=== PATIENT | female | born 1965 | race African-American/Black ===

== ENCOUNTER 2017-10-10 13:24 | Inpatient (IN) | payer OTHER, MEDICARE ==
[~2017-10-10] VITALS: Ht 167.6 cm; Wt 92.7 kg
[~2017-10-10 13:24] MED LIST: BENZ1TAB PO; DOXY100T PO; FLUO20SO3 PO; HALO0.5T PO; LORT5TAB PO; SULF-154 PO; SULF1TAB47 PO
[2017-10-10 13:55] VITALS: BP 147/84; PULSE 90; RESP 18; TEMP 98.7; O2SAT 99
[2017-10-10 14:56] LABS: AUTOMATED NEUTROPHIL # 4.9 TH/MM3 (1.8-7.7); BASOPHIL % 0.4 % (0.0-2.0); EOSINOPHIL % 0.4 % (0.0-4.0); HEMATOCRIT 28.9 % (35.0-46.0); HEMOGLOBIN 10.1 GM/DL (11.6-15.3); LYMPH % 22.2 % (9.0-44.0); LYMPHOCYTE # 1.6 TH/MM3 (1.0-4.8); MEAN CELL VOLUME 77.4 FL (80.0-100.0); MEAN CORPUSCULAR HGB CONC 34.9 % (32.0-36.0); MEAN PLATELET VOLUME 7.4 FL (7.0-11.0); MONO % 10.8 % (0.0-8.0); MONOCYTE # 0.8 TH/MM3 (0-0.9); NEUT % 66.2 % (16.0-70.0); PLATELET COUNT 260 TH/MM3 (150-450); RED BLOOD COUNT 3.73 MIL/MM3 (4.00-5.30); RED CELL DISTRIBUTION WIDTH 15.2 % (11.6-17.2); WHITE BLOOD COUNT 7.4 TH/MM3 (4.0-11.0)
[2017-10-10 15:17] LABS: ALBUMIN 3.7 GM/DL (3.4-5.0); ALT (GPT) 21 U/L (10-53); AST (GOT) 19 U/L (15-37); BICARBONATE 26.7 MEQ/L (21.0-32.0); BLOOD UREA NITROGEN 14 MG/DL (7-18); CHLORIDE 99 MEQ/L (98-107); CREATININE 1.12 MG/DL (0.50-1.00); GLOMERULAR FILTRATION RATE 61 ML/MIN (>89); GLUCOSE,RANDOM 119 MG/DL (74-106); SODIUM (NA) 134 MEQ/L (136-145)
[2017-10-10 15:19] LABS: ALKALINE PHOSPHATASE 78 U/L (45-117); TOTAL BILIRUBIN ADULT 0.8 MG/DL (0.2-1.0); TOTAL PROTEIN 8.6 GM/DL (6.4-8.2)
[2017-10-10 15:36] VITALS: BP 142/81; PULSE 70; O2SAT 100
--- NOTE | 2017-10-10 16:25 | PD ---
HPI . Nonviable Chief Complaint: Psychiatric Symptoms Time Seen by Provider: 15:54 Travel History International Travel<30 days: No Contact w/Intl Traveler<30days: No Traveled to known affect area: No History of Present Illness HPI This patient is nonverbal and unable to give any history. She was reportedly brought in via private vehicle because she has become nonverbal and is not doing anything at home to help herself. Her grandson yesterday. He was 8 months old. It was a nontraumatic which is being presumptively attributed to SIDS. There is a family member here with her who states that she talked to her on the phone last night and that the patient reported that she felt "stressed." She is brought into us this afternoon by her daughter because she has not been verbal today and has not done anything to tend to her duties of daily living. Family reports a history of schizophrenia. They do not know whether or not she has been compliant with her medications. You do not know whether or not she may have overdosed. PFSH Past Medical History Anemia: Yes Arthritis: No Asthma: No Autoimmune Disease: No Blood Disorders: Yes (ANEMIA) Anxiety: Yes Depression: Yes Heart Rhythm Problems: No Cancer: No Cardiovascular Problems: No High Cholesterol: Yes Chemotherapy: No Chest Pain: No Congestive Heart Failure: No COPD: No Cerebrovascular Accident: No Diabetes: No Diminished Hearing: No Endocrine: No Gastrointestinal Disorders: No GERD: No Glaucoma: No Genitourinary: No Headaches: No Hepatitis: No Hiatal Hernia: No Hypertension: Yes Immune Disorder: No Implanted Vascular Access Dvce: No Kidney Stones: No Musculoskeletal: No Neurologic: No Psychiatric: Yes Reproductive: No Respiratory: No Migraines: No Myocardial Infarction: No Radiation Therapy: No Renal Failure: No Schizophrenia: Yes Seizures: No Sickle Cell Disease: No Sleep Apnea: No Thyroid Disease: No Ulcer: No Para: 2 Past Surgical History Abdominal Surgery: No AICD: No Appendectomy: No Arteriovenous Shunt: No Cardiac Surgery: No Cholecystectomy: No Ear Surgery: No Endocrine Surgery: No Eye Surgery: No Genitourinary Surgery: No Gynecologic Surgery: No Insulin Pump: No Joint Replacement: No Neurologic Surgery: No Oral Surgery: No Pacemaker: No Thoracic Surgery: No Other Surgery: No Social History Alcohol Use: No Tobacco Use: No Substance Use: No Allergies-Medications (Allergen,Severity, Reaction): Coded Allergies: No Known Allergies (Verified , 8/5/12) Reported Meds & Prescriptions Reported Meds & Active Scripts Active Bactrim Ds (Trimethoprim/Sulfamethoxazole) Tab 1 Tab PO BID Doxycycline Hyclate 100 Mg Tab 100 Mg PO BID Lortab 5/500 (Acetaminophen/Hydrocodone Bitart) 5 Mg/500 Mg Tab 1 Tab PO QIDPRN FOR PAIN Doxycycline Hyclate 100 Mg Tab 100 Mg PO BID Septra Ds (Trimethoprim/Sulfamethoxazole) Tab 1 Tab PO BID Reported Haldol (Haloperidol) 0.5 Mg Tab 0 PO BID UNKNOWN DOSE Cogentin (Benztropine Mesylate) 1 Mg Tab 1 Mg PO Prozac (Fluoxetine HCl) 20 Mg/5 Ml Liqd 20 Mg PO DAILY Review of Systems ROS Limitations: Unresponsive Physical Exam Narrative GENERAL: Lying on the stretcher with her eyes closed. Her eyelids do flutter. SKIN: warm/dry. Color and turgor. HEAD: Normocephalic. Atraumatic. EYES: Pupils equal and round. No scleral icterus. No injection or drainage. ENT: No nasal bleeding or discharge. Mucous membranes pink and moist. NECK: Trachea midline. Supple. CARDIOVASCULAR: Regular rate and rhythm. Heart sounds normal. RESPIRATORY: No accessory muscle use. Clear to auscultation. Breath sounds equal bilaterally. GASTROINTESTINAL: Abdomen soft. Nondistended. MUSCULOSKELETAL: No obvious deformities. NEUROLOGICAL: No obvious focal deficits noted. Good muscle tone. PSYCHIATRIC: Unable to assess. Data Data Last Documented VS Vital Signs Date Time Temp Pulse Resp B/P (MAP) Pulse Ox O2 Delivery O2 Flow Rate FiO2 10/10/17 15:36 70 142/81 (101) 100 Room Air 10/10/17 13:55 98.7 18 Orders Orders Complete Blood Count With Diff (10/10/17 14:14) Comprehensive Metabolic Panel (10/10/17 14:14) Psych Screen (10/10/17 14:14) Alcohol (Ethanol) (10/10/17 14:14) Cath For Specimen (10/10/17 15:54) Restraints Non-Violent HIALEY.Q3H (10/10/17 15:54) Drug Screen, Random Urine (10/10/17 15:54) Alcohol (Ethanol) (10/10/17 15:54) Salicylates (Aspirin) (10/10/17 15:54) Tylenol (Acetaminophen) (10/10/17 15:54) Potassium Chloride (Kcl) (10/11/17 09:00) Labs Laboratory Tests Test 10/10/17 14:25 10/10/17 15:50 White Blood Count 7.4 TH/MM3 Red Blood Count 3.73 MIL/MM3 Hemoglobin 10.1 GM/DL Hematocrit 28.9 % Mean Corpuscular Volume 77.4 FL Mean Corpuscular Hemoglobin 27.0 PG Mean Corpuscular Hemoglobin Concent 34.9 % Red Cell Distribution Width 15.2 % Platelet Count 260 TH/MM3 Mean Platelet Volume 7.4 FL Neutrophils (%) (Auto) 66.2 % Lymphocytes (%) (Auto) 22.2 % Monocytes (%) (Auto) 10.8 % Eosinophils (%) (Auto) 0.4 % Basophils (%) (Auto) 0.4 % Neutrophils # (Auto) 4.9 TH/MM3 Lymphocytes # (Auto) 1.6 TH/MM3 Monocytes # (Auto) 0.8 TH/MM3 Eosinophils # (Auto) 0.0 TH/MM3 Basophils # (Auto) 0.0 TH/MM3 CBC Comment DIFF FINAL Differential Comment Blood Urea Nitrogen 14 MG/DL Creatinine 1.12 MG/DL Random Glucose 119 MG/DL Total Protein 8.6 GM/DL Albumin 3.7 GM/DL Calcium Level 9.0 MG/DL Alkaline Phosphatase 78 U/L Aspartate Amino Transf (AST/SGOT) 19 U/L Alanine Aminotransferase (ALT/SGPT) 21 U/L Total Bilirubin 0.8 MG/DL Sodium Level 134 MEQ/L Potassium Level 3.1 MEQ/L Chloride Level 99 MEQ/L Carbon Dioxide Level 26.7 MEQ/L Anion Gap 8 MEQ/L Estimat Glomerular Filtration Rate 61 ML/MIN Ethyl Alcohol Level LESS THAN 3 MG/DL Urine Opiates Screen NEG Urine Barbiturates Screen NEG Urine Amphetamines Screen NEG Urine Benzodiazepines Screen NEG Urine Cocaine Screen NEG Urine Cannabinoids Screen NEG MDM Medical Decision Making Medical Screen Exam Complete: Yes Emergency Medical Condition: Yes Differential Diagnosis Differential diagnosis includes but is not limited to conversion reaction, grief reaction, overdose Narrative Course This patient presents to us nonverbal. The nursing staff reports that she did nothing to assist them in getting her out of the car. I have taken out a [place] Act. She will be medically cleared. Once she is medically cleared, she will likely be admitted to psychiatry.CBC & BMP Diagram 10/10/17 14:25 Total Protein 8.6 H, Albumin 3.7, Calcium Level 9.0, Alkaline Phosphatase 78, Aspartate Amino Transf (AST/SGOT) 19, Alanine Aminotransferase (ALT/SGPT) 21, Total Bilirubin 0.8 Supplemental potassium has been ordered. Tox screen is negative. This patient is medically clear for psychiatric evaluation. Diagnosis Primary Impression: Nonverbal Condition: Stable Khushi Torres MD Oct 10, 2017 16:25
[2017-10-10 17:58] VITALS: BP 125/74; PULSE 73; RESP 17; TEMP 99; O2SAT 100
[2017-10-10] MEDS ORDERED: WELLTAB39 PO (18:47)
[2017-10-10] MEDS ORDERED: BENZ0.5T PO (18:48)
[2017-10-10] MEDS ORDERED: GABA300C5 PO (18:48)
[2017-10-10] MEDS ORDERED: HALO10TA PO (18:50)
[2017-10-10] MEDS ORDERED: HALO5TAB PO (18:50)
[2017-10-10 19:58] VITALS: BP 195/93; PULSE 79; RESP 17; TEMP 96.7; O2SAT 99
[2017-10-10 20:43] VITALS: BP 175/80
[2017-10-11 00:32] VITALS: BP 185/89; PULSE 103; RESP 18; TEMP 96.8; O2SAT 100
[2017-10-11] MEDS ORDERED: cloNIDine HCL 0.1 MG TAB PO ONE (00:45)
[2017-10-11 06:00] VITALS: BP 157/81; PULSE 81; RESP 18; TEMP 98.6; O2SAT 100
[2017-10-11] MEDS ORDERED: AMLO5TAB2 PO (06:31)
[2017-10-11 12:16] VITALS: BP 176/96; PULSE 81; RESP 18; O2SAT 100
[2017-10-11] MEDS ORDERED: LORazepam 1 MG TAB PO PRN (14:45)
[2017-10-11] MEDS ORDERED: LORazepam 2 MG/ML VIAL IM PRN (14:45)
[2017-10-11] MEDS ORDERED: ALUMINUM/MAGNESIUM/SIMETH 30 ML CUP PO PRN (14:45)
[2017-10-11] MEDS ORDERED: MAGNESIUM HYDROXIDE SUSP 30 ML CUP PO PRN (14:45)
[2017-10-11] MEDS ORDERED: diphenhydrAMINE HCL 50 MG/ML VIAL IM PRN (14:45)
--- NOTE | 2017-10-11 14:49 | HHI.HP ---
Provisional Diagnosis Admission Date Warren I. Schizoaffective disorder, depressed type Certification of Person's Competence To Provide Express and Informed Consent I have personally examined Carina Dumont , a person being served at [facility] on, Oct 11, 2017 14:44. Express and informed consent means consent voluntarily given in writing, by a competent person, after sufficient explanation and disclosure of the subject matter involved to enable the person to make a knowing and willful decision without any element of force, fraud, deceit, duress, or other form of constraint or coercion. This person is 18 years of age or older, is not now known to be incompetent to consent to treatment with a guardian advocate, and does not have a health care surrogate or proxy currently making medical treatment decisions. I have found this person to be one of the following: [] Competent to provide express and informed consent, as defined above, for voluntary admission to this facility and is competent to provide express and informed consent for treatment. He/she has the consistent capacity to make well reasoned, willful, and knowing decisions concerning his or her medical or mental health treatment. The person fully and consistently understands the purpose of the admission for examination/placement and is fully capable of personally exercising all rights assured [place] [X] Incompetent to provide express and informed consent to voluntary admission, and this is incompetent to provide express and informed consent to treatment. The person must be transferred to involuntary status and a petition for a guardian advocate filed with the Circuit Court. [] Refusing to provide express and informed consent to voluntary admission but is competent to provide express and informed consent for treatment. The person must be discharged or transferred to involuntary status. Form shall be completed within 24 hours of a person's arrival at the receiving facility and filed in the clinical record of each person: 1. Admitted on a voluntary basis 2. Permitted to provide express and informed consent to his/her own treatment 3. Allowed to transfer from involuntary to voluntary status 4. Prior to permitting a person to consent to his or her own treatment after having been previously found incompetent to consent to treatment. History of Present Illness Capacity: Lacks Capacity HPI 52-year-old female brought in voluntarily, with history of either schizophrenia or schizoaffective disorder, mostly nonverbal and not caring for herself. Apparently the patient's 7-8 month old grandson the day prior to arrival. He was felt to have as a result of SIDS. The patient was living with her daughter and grandson. She called a family member and indicated she felt stressed. The morning of her admission to the emergency department, the patient became nonverbal. She would not get out of bed. When presenting to the emergency department physician, she was lying on a stretcher with her eyes closed. She would not respond to questions from staff or family members. Occasionally she would not her head or provide one word answers she has not eaten food or consumed liquids since her grandson . In the past the patient had lived alone but she is not recently living alone but instead lives with her daughter, Kristen a period Upon interview, the patient once again gives 1 word answers, no answers or very brief answers. She is aware that her grandson . She is aware that she is treated at [facility]. She is also aware that she lives with her daughter Kirsten. However, she is not moving or eating or drinking spontaneously. She is quite close to being catatonic. Review of Systems ROS Limitations: Clinical Condition Except as stated in HPI: all other systems reviewed are Neg Past Psych History Psychological trauma history Unknown psychological trauma. Patient has been treated at [facility] in the past. Violence risk - others (6 mos) Minimal Violence risk - self (6 mos) High Substance Abuse History Drugs/Alcohol past 12 months No known history of drug abuse. No known history of alcohol abuse. Past Family Social History Coded Allergies: No Known Allergies (Verified Allergy, Unknown, 10/10/17) Per DELMY Smith, [facility] [phone]. Reported Medications Amlodipine (Amlodipine) 5 Mg Tab, 5 MG PO DAILY for Blood Pressure Management, # 30 TAB 0 Refills 10/11/17 Haloperidol (Haloperidol) 10 Mg Tab, 10 MG PO HS, TAB 0 Refills 10/10/17 Haloperidol (Haloperidol) 5 Mg Tab, 5 MG PO DAILY, TAB 0 Refills 10/10/17 Gabapentin (Gabapentin) 300 Mg Cap, 300 MG PO TID, #90 CAP 0 Refills 10/10/17 Benztropine (Benztropine) 0.5 Mg Tab, 2 MG PO BID, #60 TAB 0 Refills 10/10/17 Bupropion HCl ER 24 HR (Wellbutrin Xl 24 HR) 300 Mg Tab, 300 MG PO HS for Control Depression, TAB 0 Refills 10/10/17 Discontinued Reported Medications Haloperidol (Haloperidol) 0.5 Mg Tab, 0 PO BID UNKNOWN DOSE 08/19/11 Benztropine Mesylate (Benztropine Mesylate) 1 Mg Tab, 1 MG PO 08/19/11 Fluoxetine Hcl (Prozac) 20 Mg/5 Ml Liqd, 20 MG PO DAILY 08/19/11 Discontinued Scripts Trimethoprim/Sulfamethoxazole (Bactrim Ds) Tab, 1 TAB PO BID, #20 Prov:Shawn Ochoa Jr, MD 05/10/12 Doxycycline Hyclate 100 mg (Doxycycline Hyclate 100 mg) 100 Mg Tab, 100 MG PO BID, #20 Prov:Shwan Ochoa Jr, MD 05/10/12 Hydrocodone-Acetaminophen (Lortab 5/500) 5 Mg/500 Mg Tab, 1 TAB PO QIDPRN, #15 FOR PAIN Prov:Ricky Aguero MD 08/19/11 Doxycycline Hyclate 100 mg (Doxycycline Hyclate 100 mg) 100 Mg Tab, 100 MG PO BID, #20 Prov:Ricky Aguero MD 08/19/11 Sulfamethoxazole-Trimethoprim (Septra Ds) Tab, 1 TAB PO BID, #20 Prov:Ricky Aguero MD 08/19/11 Current Medications Medications (Trade) Dose Ordered Sig/Praneeth Route Start Time Stop Time Status Last Admin (KCl) 40 meq DAILY PO 10/11/17 09:00 (Ativan) 1 mg Q6H PRN PO 10/11/17 14:45 UNV (Ativan Inj) 1 mg Q6H PRN IM 10/11/17 14:45 UNV (Benadryl) 50 mg Q6H PRN PO 10/11/17 14:45 UNV (Benadryl Inj) 50 mg Q6H PRN IM 10/11/17 14:45 UNV (Tylenol) 650 mg Q4H PRN PO 10/11/17 14:45 UNV (Milk Of Magnesia Liq) 30 ml DAILY PRN PO 10/11/17 14:45 UNV (Mag-Al Plus Susp Liq) 30 ml Q6H PRN PO 10/11/17 14:45 UNV Family Psych History Unknown. Patient poor historian. Social History Patient is unemployed and disabled from work. As stated above, she lives with her daughter, Shiela. She is aware her 7-month-old grandson . She was apparently "babysitting" at the time. There is no evidence of trauma to the baby. Patient's daughter is reportedly supportive. No history of alcohol or drug abuse. Physical Exam GENERAL: SKIN: Warm and dry. HEAD: Normocephalic. EYES: No scleral icterus. No injection or drainage. NECK: Supple, trachea midline. No JVD or lymphadenopathy. CARDIOVASCULAR: Regular rate and rhythm without murmurs, gallops, or rubs. RESPIRATORY: Breath sounds equal bilaterally. No accessory muscle use. GASTROINTESTINAL: Abdomen soft, non-tender, nondistended. MUSCULOSKELETAL: No cyanosis, or edema. BACK: Nontender without obvious deformity. No CVA tenderness. Vital Signs Vital Signs Date Time Temp Pulse Resp B/P (MAP) Pulse Ox O2 Delivery O2 Flow Rate FiO2 10/11/17 12:16 81 18 176/96 (122) 100 Room Air 10/11/17 06:00 98.6 I/O 10/11/17 10/11/17 10/12/17 08:00 16:00 00:00 Intake Total 100 ml Balance 100 ml Lab Results Test 10/10/17 15:50 Urine Opiates Screen NEG Urine Barbiturates Screen NEG Urine Amphetamines Screen NEG Urine Benzodiazepines Screen NEG Urine Cocaine Screen NEG Urine Cannabinoids Screen NEG Mental Status Examination Appearance: Disheveled Consciousness: Alert Orientation: Person Motor Activity: Abnormal gait Speech: Other Language: Adequate Fund of Knowledge: Adequate Attention and Concentration: Inadequate Memory: Impaired Mood: Sad Affect: Flat Thought Process & Associations: Other Thought Content: Thought blocking Hallucination Type: Auditory Delusion Type: None Suicidal Ideation: No Suicidal Plan: No Suicidal Intention: No Homicidal Ideation: No Homicidal Plan: No Homicidal Intention: No Insight: Poor Judgment: Poor Assessment & Plan Problem List: (1) Schizoaffective disorder, depressive type ICD Codes: F25.1 - Schizoaffective disorder, depressive type Assessment & Plan Estimated LOS: days. 52-year-old female Francisco acted as a result of inability to care for self. Patient has a history of schizophrenia or schizoaffective disorder and her grandson recently at the age of 7 months. Patient appears to be close to catatonic and this is likely the result of the of her grandson. According to reports, the patient normally functions better than this. For the most part, the patient is not speaking, eating, drinking fluids, or taking care of herself in any way. For this reason, the patient is felt to be in great danger of self-harm and is being admitted. This physician has ordered a CBC and comprehensive metabolic panel to determine if any infectious process or metabolic process is causing or contributing to her catatonia and psychosis. Furthermore, as a result of her mental illness, this physician is concerned about electrolyte imbalances, etc. as she is not eating or drinking adequately. This physician also ordered a hospitalist consult to follow the patient and determine any physical medicine abnormalities that might need to be treated emergently. This physician also ordered thyroid stimulating hormone, vitamin B-12 and vitamin D levels to determine if deficiencies in these areas are causing or contributing to her depression and catatonia. This physician also ordered an EKG to determine the patient's cardiac conduction status as her previous medications, including Haldol, can adversely affect the electrical system of her heart. This physician also started the patient on Abilify as it is less likely to cause cardiac conduction abnormalities, works well to augment antidepressant medicines such as the patient's current Wellbutrin and may help with increasing appetite. This physician spoke with the patient's nurse, Mariposa, regarding the patient's recent behavior. Case management will also be involved in information gathering and disposition planning. Kervin Celestin MD Oct 11, 2017 14:49
[2017-10-11 16:16] VITALS: BP 154/90; PULSE 89; RESP 16; TEMP 98.6; O2SAT 98
[2017-10-11] MEDS: amLODIPine BESYLATE 5 MG TAB PO SCH (16:20)
[2017-10-11] MEDS: POTASSIUM CHLORIDE 20 MEQ CONTROLLED RELEASE TAB PO SCH (16:21)
[2017-10-11] MEDS: ACETAMINOPHEN 325 MG TAB PO PRN (16:21)
[2017-10-11] MEDS: GABAPENTIN 300 MG CAP PO SCH (17:54)
[2017-10-11] MEDS ORDERED: ARIPiprazole 5 MG TAB PO SCH (21:00)
[2017-10-11] MEDS: buPROPion HCL 150 MG SUSTAINED RELEASE TAB PO SCH (22:18)
[2017-10-12] MEDS: buPROPion HCL 150 MG SUSTAINED RELEASE TAB PO SCH ×2 (08:44→21:33)
[2017-10-12] MEDS: POTASSIUM CHLORIDE 20 MEQ CONTROLLED RELEASE TAB PO SCH (08:45)
[2017-10-12] MEDS: GABAPENTIN 300 MG CAP PO SCH ×3 (08:45→17:52)
[2017-10-12] MEDS: amLODIPine BESYLATE 5 MG TAB PO SCH (08:45)
[2017-10-12 10:11] LABS: AUTOMATED NEUTROPHIL # 4.8 TH/MM3 (1.8-7.7); BASOPHIL # 0.1 TH/MM3 (0-0.2); BASOPHIL % 0.9 % (0.0-2.0); EOSINOPHIL # 0.1 TH/MM3 (0-0.4); EOSINOPHIL % 1.5 % (0.0-4.0); HEMATOCRIT 29.1 % (35.0-46.0); HEMOGLOBIN 10.1 GM/DL (11.6-15.3); LYMPH % 24.6 % (9.0-44.0); LYMPHOCYTE # 1.8 TH/MM3 (1.0-4.8); MEAN CORPUSCULAR HEMOGLOBIN 27.2 PG (27.0-34.0); MEAN CORPUSCULAR HGB CONC 34.8 % (32.0-36.0); MEAN PLATELET VOLUME 7.6 FL (7.0-11.0); MONOCYTE # 0.7 TH/MM3 (0-0.9); PLATELET COUNT 288 TH/MM3 (150-450); RED BLOOD COUNT 3.73 MIL/MM3 (4.00-5.30); RED CELL DISTRIBUTION WIDTH 15.8 % (11.6-17.2); WHITE BLOOD COUNT 7.5 TH/MM3 (4.0-11.0)
[2017-10-12 10:47] LABS: ALBUMIN 3.3 GM/DL (3.4-5.0); AST (GOT) 13 U/L (15-37); BICARBONATE 27.7 MEQ/L (21.0-32.0); BLOOD UREA NITROGEN 17 MG/DL (7-18); CALCIUM 9.1 MG/DL (8.5-10.1); CHLORIDE 102 MEQ/L (98-107); CREATININE 1.26 MG/DL (0.50-1.00); GLOMERULAR FILTRATION RATE 54 ML/MIN (>89); GLUCOSE,RANDOM 150 MG/DL (74-106); SODIUM (NA) 139 MEQ/L (136-145)
[2017-10-12 10:48] LABS: CHOLESTEROL 201 MG/DL (120-200)
[2017-10-12 11:14] LABS: ALKALINE PHOSPHATASE 73 U/L (45-117); ALT (GPT) 16 U/L (10-53); CHOLESTEROL/ HDL RATIO 3.11 RATIO; HDL CHOLESTEROL 64.5 MG/DL (40.0-60.0); LDL CHOLESTEROL 125 MG/DL (0-99); TOTAL BILIRUBIN ADULT 0.5 MG/DL (0.2-1.0); TOTAL PROTEIN 7.8 GM/DL (6.4-8.2); TRIGLYCERIDES 56 MG/DL (42-150)
--- NOTE | 2017-10-12 15:21 | HHI.PYPN ---
Subjective Remarks Patient initially admitted by Dr. Kervin Celestin who did initial psychiatric evaluation. He has done first opinion petition supporting [employer]. I have finished the initial psychiatric template orders. And also did a med reconciliation review. Patient seen by me in her room with nurse Caroline. Patient markedly psychomotor retarded her responses are markedly delayed. She acknowledges persistent somewhat of a command intimidating auditory hallucinations that of increased since the tragic of her grandson of SIDS. She states she is a client Mr. Dhara ledbetter and does see Chris Shelton there. She denies any alcohol or drug use with this. Patient has been in the day room briefly making a phone call. By she shows significant decrease in the range intense in her affect. She is able contracted to no harm while here. There is a catatonic flavor to this lady though her verbal output is minimal. Will increase patient's Abilify to 15 mg at at bedtime. I also agree with Dr. Celestin patient does meet criteria for involuntary psychiatric hospitalization thus will cosign second opinion petition supporting [employer] act Review of Systems Except as stated in HPI: all other systems reviewed are Neg Mental Status Examination Appearance: Disheveled Consciousness: Alert Orientation: Person Motor Activity: Abnormal gait Speech: Other Language: Adequate Fund of Knowledge: Adequate Attention and Concentration: Inadequate Memory: Impaired Mood: Sad Affect: Flat Thought Process & Associations: Other Thought Content: Thought blocking Hallucination Type: Auditory Delusion Type: None Suicidal Ideation: No Suicidal Plan: No Suicidal Intention: No Homicidal Ideation: No Homicidal Plan: No Homicidal Intention: No Insight: Poor Judgment: Poor Results Labs Test 10/12/17 09:09 White Blood Count 7.5 TH/MM3 Red Blood Count 3.73 MIL/MM3 Hemoglobin 10.1 GM/DL Hematocrit 29.1 % Mean Corpuscular Volume 78.0 FL Mean Corpuscular Hemoglobin 27.2 PG Mean Corpuscular Hemoglobin Concent 34.8 % Red Cell Distribution Width 15.8 % Platelet Count 288 TH/MM3 Mean Platelet Volume 7.6 FL Neutrophils (%) (Auto) 64.0 % Lymphocytes (%) (Auto) 24.6 % Monocytes (%) (Auto) 9.0 % Eosinophils (%) (Auto) 1.5 % Basophils (%) (Auto) 0.9 % Neutrophils # (Auto) 4.8 TH/MM3 Lymphocytes # (Auto) 1.8 TH/MM3 Monocytes # (Auto) 0.7 TH/MM3 Eosinophils # (Auto) 0.1 TH/MM3 Basophils # (Auto) 0.1 TH/MM3 CBC Comment DIFF FINAL Differential Comment Blood Urea Nitrogen 17 MG/DL Creatinine 1.26 MG/DL Random Glucose 150 MG/DL Total Protein 7.8 GM/DL Albumin 3.3 GM/DL Calcium Level 9.1 MG/DL Alkaline Phosphatase 73 U/L Aspartate Amino Transf (AST/SGOT) 13 U/L Alanine Aminotransferase (ALT/SGPT) 16 U/L Total Bilirubin 0.5 MG/DL Sodium Level 139 MEQ/L Potassium Level 3.6 MEQ/L Chloride Level 102 MEQ/L Carbon Dioxide Level 27.7 MEQ/L Anion Gap 9 MEQ/L Estimat Glomerular Filtration Rate 54 ML/MIN Triglycerides Level 56 MG/DL Cholesterol Level 201 MG/DL LDL Cholesterol 125 MG/DL HDL Cholesterol 64.5 MG/DL Cholesterol/HDL Ratio 3.11 RATIO Vitamin B12 Level 581 PG/ML 25-Hydroxy Vitamin D Total 23.4 ng/ML Thyroid Stimulating Hormone 3rd Gen 1.190 uIU/ML Vitals/IOs Vital Signs Date Time Temp Pulse Resp B/P (MAP) Pulse Ox O2 Delivery O2 Flow Rate FiO2 10/11/17 16:16 98.6 89 16 154/90 (111) 98 10/11/17 12:16 Room Air Intake and Output 10/12/17 10/12/17 10/13/17 08:00 16:00 00:00 Intake Total 240 ml Balance 240 ml Assessment & Plan Problem List: (1) Schizoaffective disorder, depressive type ICD Codes: F25.1 - Schizoaffective disorder, depressive type Assessment & Plan Estimated LOS: days patient severely depressed with marked psychomotor retardation. She medication adjustment above review Dr. Celestin and cosigned second opinion petition supporting [place] act Justification for Cont. Inpt. At this time patient decompensated placed a lower level of care Discharge Planning Need to contact patient's family consider various options including return home with her daughter Request HC Surrog/Guard Advoc?: No Shawn Taylor MD Oct 12, 2017 15:21
--- NOTE | 2017-10-12 16:45 | PD.CONS ---
HPI Service [facility] Hospitalists Consult Requested By Dr. Celestin Reason for Consult medical management Primary Care Physician Unknown Diagnoses: History of Present Illness Pt is a 52 yr old AA female w PMHx of either schizophrenia or schizoaffective disorder (per chart) HTN, chronic knee pain is admitted under the psych service. Hospitalist service consulted for medical management. Pt tells me that she found her grandson in his crib. She is having a hard time differentiating between reality and what is not. She has been having bad dreams. doesn't answer when I ask her if she hears voices or sees people. she has a very flat affect and speaks in a very low voice. she denies any CP/SOB/N/V /abd pain/burning w urination Review of Systems Except as stated in HPI: all other systems reviewed are Neg Past Family Social History Allergies: Coded Allergies: No Known Allergies (Verified Allergy, Unknown, 10/10/17) Per DELMY Smith, [facility] [phone]. Past Medical History either schizophrenia or schizoaffective disorder (per chart) HTN, chronic knee pain Past Surgical History ovarian cyst removed Reported Medications Reported Meds & Active Scripts Active Reported Amlodipine (Amlodipine Besylate) 5 Mg Tab 5 Mg PO DAILY Haloperidol 10 Mg Tab 10 Mg PO HS Haloperidol 5 Mg Tab 5 Mg PO DAILY Gabapentin 300 Mg Cap 300 Mg PO TID Benztropine (Benztropine Mesylate) 0.5 Mg Tab 2 Mg PO BID Wellbutrin Xl 24 HR (Bupropion HCl) 300 Mg Tab 300 Mg PO HS Family History mother healthy father was shot and killed Social History denies any smoking hx, alcohol use or illegal drug use Physical Exam Physical Exam GENERAL: This is an AA female, w very flat affect, mainly looks down SKIN: No rashes, ecchymoses or lesions. Cool and dry. HEAD: Atraumatic. Normocephalic. EYES: Pupils equal round and reactive. Extraocular motions intact. No scleral icterus. No injection or drainage. ENT: Nose without drainage . Throat without erythema, tonsillar hypertrophy or exudate. Airway patent. NECK: Trachea midline. CARDIOVASCULAR: Regular rate and rhythm without murmurs RESPIRATORY: Clear to auscultation. Breath sounds equal bilaterally. No wheezes GASTROINTESTINAL: Abdomen soft, non-tender, nondistended. MUSCULOSKELETAL: Extremities without edema. NEUROLOGICAL/PSYCH: Awake and alert. flat affect. is very brief w her answers. soft voice. Motor and sensory grossly within normal limits. slow speech. Laboratory Laboratory Tests Test 10/12/17 09:09 White Blood Count 7.5 Red Blood Count 3.73 Hemoglobin 10.1 Hematocrit 29.1 Mean Corpuscular Volume 78.0 Mean Corpuscular Hemoglobin 27.2 Mean Corpuscular Hemoglobin Concent 34.8 Red Cell Distribution Width 15.8 Platelet Count 288 Mean Platelet Volume 7.6 Neutrophils (%) (Auto) 64.0 Lymphocytes (%) (Auto) 24.6 Monocytes (%) (Auto) 9.0 Eosinophils (%) (Auto) 1.5 Basophils (%) (Auto) 0.9 Neutrophils # (Auto) 4.8 Lymphocytes # (Auto) 1.8 Monocytes # (Auto) 0.7 Eosinophils # (Auto) 0.1 Basophils # (Auto) 0.1 CBC Comment DIFF FINAL Differential Comment Blood Urea Nitrogen 17 Creatinine 1.26 Random Glucose 150 Total Protein 7.8 Albumin 3.3 Calcium Level 9.1 Alkaline Phosphatase 73 Aspartate Amino Transf (AST/SGOT) 13 Alanine Aminotransferase (ALT/SGPT) 16 Total Bilirubin 0.5 Sodium Level 139 Potassium Level 3.6 Chloride Level 102 Carbon Dioxide Level 27.7 Anion Gap 9 Estimat Glomerular Filtration Rate 54 Triglycerides Level 56 Cholesterol Level 201 LDL Cholesterol 125 HDL Cholesterol 64.5 Cholesterol/HDL Ratio 3.11 Vitamin B12 Level 581 25-Hydroxy Vitamin D Total 23.4 Thyroid Stimulating Hormone 3rd Gen 1.190 Result Diagram: 10/12/17 0909 10/12/17 0909 Assessment and Plan Assessment and Plan Schizoaffective disorder, depressive type: management per psych HTN: on amlodipine 5mg po daily. I will increase dose to 10mg po daily. added clonidine prn. heart healthy diet. chronic knee pain: apparently takes gabapentin for it.? neuropathy. Pt poor historian Mild SIRENA: Cr 1.26. Encourage po hydration. Repeat BMP in AM DVT proph: ambulation. Thank you for allowing us to take part of Mrs Dumont's care. I have adjusted pt' s BP meds and diet. Discussed Condition With patient and RN Martita Randall MD Oct 12, 2017 16:45
[2017-10-12] MEDS ORDERED: amLODIPine BESYLATE 5 MG TAB PO ONE (17:00)
[2017-10-12 17:19] LABS: HEMOGLOBIN A1C 5.5 % (4.3-6.0)
[2017-10-12 18:42] VITALS: BP 165/84; PULSE 94; RESP 16; TEMP 98.9; O2SAT 99
[2017-10-12] MEDS ORDERED: ARIPiprazole 15 MG TAB PO SCH (21:00)
--- NOTE | 2017-10-12 21:27 | EKG ---
Date Performed: 10/12/2017 Time Performed: 08:39:17 PTAGE: 52 years EKG: Sinus rhythm MARKED LEFT AXIS DEVIATION ABNORMAL ECG NO PREVIOUS TRACING DOCTOR: Mitch George Interpretating Date/Time 10/12/2017 21:25:53
[2017-10-13 05:51] VITALS: BP 143/81; PULSE 85; RESP 17; TEMP 98; O2SAT 100
[2017-10-13] MEDS: buPROPion HCL 150 MG SUSTAINED RELEASE TAB PO SCH ×2 (09:38→21:42)
[2017-10-13] MEDS: POTASSIUM CHLORIDE 20 MEQ CONTROLLED RELEASE TAB PO SCH (09:38)
[2017-10-13] MEDS: GABAPENTIN 300 MG CAP PO SCH ×3 (09:38→18:06)
[2017-10-13] MEDS: amLODIPine BESYLATE 5 MG TAB PO SCH (09:38)
[2017-10-13 13:18] LABS: BICARBONATE 28.5 MEQ/L (21.0-32.0); CALCIUM 9.1 MG/DL (8.5-10.1); CREATININE 1.13 MG/DL (0.50-1.00)
--- NOTE | 2017-10-13 13:21 | HHI.PYPN ---
Subjective Remarks Patient was seen and case discussed with nursing. Patient remains markedly psychotic. She is having auditory hallucinations of a demonic nature. They're not command in nature. Patient has a bizarre delusion that she is responsible for the deaths of her family. Psychomotor retardation, flat affect. She has fleeting suicidal ideation with no intent or plan Mental Status Examination Appearance: Disheveled Consciousness: Alert Orientation: Person Motor Activity: Abnormal gait Speech: Other Language: Adequate Fund of Knowledge: Adequate Attention and Concentration: Inadequate Memory: Impaired Mood: Sad Affect: Flat Thought Process & Associations: Other Thought Content: Thought blocking, Delusional Hallucination Type: Auditory (demonic) Delusion Type: Bizarre Suicidal Ideation: Yes Suicidal Plan: No Suicidal Intention: No Homicidal Ideation: No Homicidal Plan: No Homicidal Intention: No Insight: Poor Judgment: Poor Results Labs Test 10/13/17 12:11 Blood Urea Nitrogen 19 MG/DL Creatinine 1.13 MG/DL Random Glucose 147 MG/DL Calcium Level 9.1 MG/DL Sodium Level 136 MEQ/L Potassium Level 4.1 MEQ/L Chloride Level 102 MEQ/L Carbon Dioxide Level 28.5 MEQ/L Anion Gap 6 MEQ/L Estimat Glomerular Filtration Rate 61 ML/MIN Vitals/IOs Vital Signs Date Time Temp Pulse Resp B/P (MAP) Pulse Ox O2 Delivery O2 Flow Rate FiO2 10/13/17 05:51 98.0 85 17 143/81 (101) 100 10/11/17 12:16 Room Air Assessment & Plan Problem List: (1) Schizoaffective disorder, depressive type ICD Codes: F25.1 - Schizoaffective disorder, depressive type Assessment & Plan Increase Abilify to 20 mg by mouth daily at bedtime Justification for Cont. Inpt. Patient would decompensate in a less restrictive setting Request HC Surrog/Guard Advoc?: No Rock Romero DO Oct 13, 2017 13:21
[2017-10-13] MEDS: ATORVASTATIN 20 MG TAB PO SCH (14:47)
--- NOTE | 2017-10-13 17:28 | HHI.PR ---
Subjective Remarks Follow-up visit HTN, HLD, schizoaffective disorder. Patient seen and examined today sitting in a chair. Reports she is very depressed and feeling low. Denies Suicidal ideation, homicidal ideation. Denies any chest pain, palpitations, shortness of breath, dyspnea. Denies any fevers, chills, nausea, vomiting, diarrhea. Objective Vitals Vital Signs Date Time Temp Pulse Resp B/P (MAP) Pulse Ox O2 Delivery O2 Flow Rate FiO2 10/13/17 05:51 98.0 85 17 143/81 (101) 100 10/12/17 18:42 98.9 94 16 165/84 (111) 99 I/O 10/12/17 10/12/17 10/12/17 10/13/17 10/13/17 10/13/17 07:00 15:00 23:00 07:00 15:00 23:00 Intake Total 240 ml 480 ml Balance 240 ml 480 ml Intake Oral 240 ml 480 ml Result Diagram: 10/12/17 0909 10/13/17 1211 Objective Remarks GENERAL: This is a well-nourished, well-developed patient, in no apparent distress. SKIN: Warm and dry HEENT: Normocephalic. Pupils equal round and reactive. Nose without bleeding. Airway patent. NECK: Trachea midline. No JVD. Supple. CARDIOVASCULAR: Regular rate and rhythm without murmurs, gallops, or rubs. RESPIRATORY: Clear to auscultation. Breath sounds equal bilaterally. No wheezes , rales, or rhonchi. GASTROINTESTINAL: Abdomen soft, non-tender, nondistended. Bowel Sounds normoactive x4. MUSCULOSKELETAL: Extremities without clubbing, cyanosis, or edema. NEUROLOGICAL: Awake and alert. Oriented toplace, person. No focal neuro deficit. Moves all extremities. Slow speech. A/P Problem List: (1) Schizoaffective disorder, depressive type ICD Code: F25.1 - Schizoaffective disorder, depressive type Assessment and Plan Pt is a 52 yr old female w PMHx of either schizophrenia or schizoaffective disorder (per chart) HTN, chronic knee pain is admitted under the psych service. Hospitalist service consulted for medical management. Schizoaffective disorder, depressive type - management per psych HTN, uncontrolled - Increased amlodipine 10mg po daily. Clonidine prn. Will continue to adjust medication, will add hydralazine 25mg BID if BP continues to trend up. Avoid PAULINO/ARB due to SIRENA. Will avoid BB as it may contribute to depressive symptoms. - Heart healthy diet. - Monitor BP trend HLD - Start Atorvastatin 20mg daily - Discuss and explained with patient regarding lifestyle change and effects of Atorvastatin Chronic knee pain - Takes gabapentin for it, possible neuropathy, patient is poor historian Mild SIRENA - Cr 1.26 --> 1.13 - Encourage po hydration - Continue to monitor Renal Indices DVT proph: ambulation. Mayte Junior Oct 13, 2017 17:28
[2017-10-13 18:20] VITALS: BP 145/86; PULSE 85; RESP 17; TEMP 98.8; O2SAT 100
[2017-10-14] MEDS: POTASSIUM CHLORIDE 20 MEQ CONTROLLED RELEASE TAB PO SCH (09:10)
[2017-10-14] MEDS: ATORVASTATIN 20 MG TAB PO SCH (09:11)
[2017-10-14] MEDS: GABAPENTIN 300 MG CAP PO SCH ×3 (09:11→18:44)
[2017-10-14] MEDS: amLODIPine BESYLATE 5 MG TAB PO SCH (09:11)
[2017-10-14] MEDS: buPROPion HCL 150 MG SUSTAINED RELEASE TAB PO SCH ×2 (09:11→21:45)
--- NOTE | 2017-10-14 12:45 | HHI.PYPN ---
Subjective Remarks Patient was seen and case discussed with nursing. Patient describes herself today as "confused." Speech is hesitant with thought blocking. Patient gives inconsistent answers concerning auditory hallucinations. She does denies suicidal or homicidal ideation intent or plan. Tolerating her increased Abilify dose well Mental Status Examination Appearance: Disheveled Consciousness: Alert Orientation: Person Motor Activity: Abnormal gait Speech: Other Language: Adequate Fund of Knowledge: Adequate Attention and Concentration: Inadequate Memory: Impaired Mood: Sad Affect: Flat Thought Process & Associations: Other Thought Content: Thought blocking, Delusional Hallucination Type: Auditory (demonic) Delusion Type: Bizarre Suicidal Ideation: No Suicidal Plan: No Suicidal Intention: No Homicidal Ideation: No Homicidal Plan: No Homicidal Intention: No Insight: Poor Judgment: Poor Results Vitals/IOs Vital Signs Date Time Temp Pulse Resp B/P (MAP) Pulse Ox O2 Delivery O2 Flow Rate FiO2 10/13/17 18:20 98.8 85 17 145/86 (105) 100 10/11/17 12:16 Room Air Assessment & Plan Problem List: (1) Schizoaffective disorder, depressive type ICD Codes: F25.1 - Schizoaffective disorder, depressive type Assessment & Plan Continue current treatment plan Justification for Cont. Inpt. Patient will decompensate in a less restrictive setting Request HC Surrog/Guard Advoc?: No Rock Romero DO Oct 14, 2017 12:45
[2017-10-14] MEDS: ACETAMINOPHEN 325 MG TAB PO PRN (15:41)
[2017-10-14 16:13] VITALS: BP 142/89; PULSE 71; RESP 18; TEMP 98.2; O2SAT 100
[2017-10-14] MEDS: hydrALAZINE HCL 25 MG TAB PO SCH (21:45)
[2017-10-15 06:16] VITALS: BP 135/71; PULSE 81; RESP 17; TEMP 98.9; O2SAT 96
[2017-10-15] MEDS: hydrALAZINE HCL 25 MG TAB PO SCH ×2 (09:35→21:38)
[2017-10-15] MEDS: amLODIPine BESYLATE 5 MG TAB PO SCH (09:35)
[2017-10-15] MEDS: ATORVASTATIN 20 MG TAB PO SCH (09:35)
[2017-10-15] MEDS: POTASSIUM CHLORIDE 20 MEQ CONTROLLED RELEASE TAB PO SCH (09:35)
[2017-10-15] MEDS: buPROPion HCL 150 MG SUSTAINED RELEASE TAB PO SCH ×2 (09:35→21:38)
[2017-10-15] MEDS: GABAPENTIN 300 MG CAP PO SCH ×3 (09:36→17:28)
[2017-10-15] MEDS: CHOLECALCIFEROL (VIT D3) 1000 UNIT TAB PO SCH (11:23)
--- NOTE | 2017-10-15 14:29 | HHI.PR ---
Subjective Remarks Follow-up visit HTN, HLD, schizoaffective disorder. Patient seen and examined today. States she continue to be depressed but feels it's getting better. Denies Suicidal ideation, homicidal ideation. Denies any chest pain, palpitations, shortness of breath, dyspnea. Denies any fevers, chills, nausea, vomiting, diarrhea. Objective Vitals Vital Signs Date Time Temp Pulse Resp B/P (MAP) Pulse Ox O2 Delivery O2 Flow Rate FiO2 10/15/17 06:16 98.9 81 17 135/71 (92) 96 10/14/17 16:13 98.2 71 18 142/89 (106) 100 I/O 10/14/17 10/14/17 10/14/17 10/15/17 10/15/17 10/15/17 07:00 15:00 23:00 07:00 15:00 23:00 Intake Total 480 ml Balance 480 ml Intake Oral 480 ml Result Diagram: 10/12/17 0909 10/13/17 1211 Objective Remarks GENERAL: This is a well-nourished, well-developed patient, in no apparent distress. SKIN: Warm and dry HEENT: Normocephalic. Pupils equal round and reactive. Nose without bleeding. Airway patent. NECK: Trachea midline. No JVD. Supple. CARDIOVASCULAR: Regular rate and rhythm without murmurs, gallops, or rubs. RESPIRATORY: Clear to auscultation. Breath sounds equal bilaterally. No wheezes , rales, or rhonchi. GASTROINTESTINAL: Abdomen soft, non-tender, nondistended. Bowel Sounds normoactive x4. MUSCULOSKELETAL: Extremities without clubbing, cyanosis, or edema. NEUROLOGICAL: Awake and alert. Oriented to place, person. No focal neuro deficit. Moves all extremities. Slow speech. A/P Problem List: (1) Schizoaffective disorder, depressive type ICD Code: F25.1 - Schizoaffective disorder, depressive type Assessment and Plan Pt is a 52 yr old female w PMHx of either schizophrenia or schizoaffective disorder (per chart) HTN, chronic knee pain is admitted under the psych service. Hospitalist service consulted for medical management. Schizoaffective disorder, depressive type - management per psych HTN, uncontrolled - Amlodipine 10mg po daily. Clonidine prn. Hydralazine 25mg BID. - Heart healthy diet. - Monitor BP trend. Improved HLD - Atorvastatin 20mg daily - Discuss and explained with patient regarding lifestyle change and effects of Atorvastatin - Tolerating Chronic knee pain - Takes gabapentin for it, possible neuropathy, patient is poor historian Mild SIRENA - Possibly has underlying chronic kidney disease secondary to hypertensive nephropathy. Patient's previous creatinine was within normal in 2008. Between the years of 199906/09/18 we have no records of patient's renal function. - Cr 1.26 --> 1.13 - Encourage po hydration - Continue to monitor Renal Indices intermittently Constipation - Senokot 1 dose now with MOM when necessary DVT prop, ambulation. Stable from Hospitalist standpoint. We will sign off. Reconsult as needed. Mayte Junior Oct 15, 2017 14:29
--- NOTE | 2017-10-15 15:12 | HHI.PYPN ---
Subjective Remarks Patient seen in her room with nurse dali, chart reviewed patient compliant medication. Patient reminds 2-3+ psychomotor retarded with a very poor eye contact very brief whisper responses that show marked delay. HE denies suicidality she still feels that she is guilty for what happened. For now continue treatment will consult trauma grief counselor Review of Systems Except as stated in HPI: all other systems reviewed are Neg Mental Status Examination Appearance: Disheveled Consciousness: Alert Orientation: Person Motor Activity: Abnormal gait Speech: Other Language: Adequate Fund of Knowledge: Adequate Attention and Concentration: Inadequate Memory: Impaired Mood: Sad Affect: Flat Thought Process & Associations: Other Thought Content: Thought blocking, Delusional Hallucination Type: Auditory (demonic) Delusion Type: Bizarre Suicidal Ideation: No Suicidal Plan: No Suicidal Intention: No Homicidal Ideation: No Homicidal Plan: No Homicidal Intention: No Insight: Poor Judgment: Poor Results Vitals/IOs Vital Signs Date Time Temp Pulse Resp B/P (MAP) Pulse Ox O2 Delivery O2 Flow Rate FiO2 10/15/17 06:16 98.9 81 17 135/71 (92) 96 10/11/17 12:16 Room Air Intake and Output 10/15/17 10/15/17 10/15/17 07:59 15:59 23:59 Intake Total 480 ml Balance 480 ml Assessment & Plan Problem List: (1) Schizoaffective disorder, depressive type ICD Codes: F25.1 - Schizoaffective disorder, depressive type Assessment & Plan Estimated LOS: days patient remains severely depressed with a melancholic flavor and psychomotor retarded. Will consult trauma grief counselor Justification for Cont. Inpt. At this time patient will decompensate and placed in a lower level of care Discharge Planning Possible return home with family Request HC Surrog/Guard Advoc?: No Shawn Taylor MD Oct 15, 2017 15:12
--- NOTE | 2017-10-15 15:22 | PD.TTN ---
Patient Problems 1. Discharge planning 2. Medication compliance 3. Knowledge deficit 4. Lack of coping skills Progress Toward Goals Provider Present: Dr. Farooq Taylor Provider Input: Patient has psychomotor movement and continues to talk in a hushed whispered tone. Patient is compliant with medications and make limited eye contact. Patient is cooperative and has low affect. Nurse(s) Input: Patient is compliant with medications and is somewhat isolative to self. Psychiatric Counselors Present: IAN Bonds Psych Therapist Input: Patient has low affect and is limited with eye contact. Patient continues to feel guilty over of grandson and would benefit from grief counseling. Group Spec/RT/OT/GILLIS Present: Thomas Gilmore OT Group Spec/RT/OT/GILLIS Input: Patient attned select groups Darlene Jackson Oct 15, 2017 15:22
[2017-10-15] MEDS ORDERED: DOCUSATE SODIUM 50 MG/SENNA 8.6 MG TAB PO ONE (15:45)
[2017-10-15 18:38] VITALS: BP 167/86; PULSE 87; RESP 16; TEMP 98.8
[2017-10-15] MEDS: cloNIDine HCL 0.1 MG TAB PO PRN ×2 (18:42→18:44)
[2017-10-16 06:16] VITALS: BP 142/81; PULSE 96; RESP 17; TEMP 99.1; O2SAT 100
[2017-10-16] MEDS: hydrALAZINE HCL 25 MG TAB PO SCH ×2 (09:24→21:10)
[2017-10-16] MEDS: buPROPion HCL 150 MG SUSTAINED RELEASE TAB PO SCH ×2 (09:24→21:10)
[2017-10-16] MEDS: GABAPENTIN 300 MG CAP PO SCH ×3 (09:24→18:00)
[2017-10-16] MEDS: POTASSIUM CHLORIDE 20 MEQ CONTROLLED RELEASE TAB PO SCH (09:25)
[2017-10-16] MEDS: CHOLECALCIFEROL (VIT D3) 1000 UNIT TAB PO SCH (09:25)
[2017-10-16] MEDS: ATORVASTATIN 20 MG TAB PO SCH (09:25)
[2017-10-16] MEDS: amLODIPine BESYLATE 5 MG TAB PO SCH (09:25)
--- NOTE | 2017-10-16 13:03 | HHI.PYPN ---
Subjective Remarks Patient seen in her room with nurse Amber, chart reviewed, patient compliant medication. Patient continues markedly psychomotor retarded with very delayed verbal responses that are whisper brief at times incomprehensible. There is very poor eye contact rises at times seemed be shifting [id number] is a she is responding to internal stimuli. Though she denies voices. She does denies suicidality at this time also. The feels remains significantly depressed. At this time I also feel the may be a degree of catatonia with this lady thus we will offer her 0.5 mg of Ativan 3 times a day continue her other medications Review of Systems Except as stated in HPI: all other systems reviewed are Neg Mental Status Examination Appearance: Disheveled Consciousness: Alert Orientation: Person Motor Activity: Abnormal gait Speech: Other Language: Adequate Fund of Knowledge: Adequate Attention and Concentration: Inadequate Memory: Impaired Mood: Sad Affect: Flat Thought Process & Associations: Other Thought Content: Thought blocking, Delusional Hallucination Type: Auditory (demonic) Delusion Type: Bizarre Suicidal Ideation: No Suicidal Plan: No Suicidal Intention: No Homicidal Ideation: No Homicidal Plan: No Homicidal Intention: No Insight: Poor Judgment: Poor Results Vitals/IOs Vital Signs Date Time Temp Pulse Resp B/P (MAP) Pulse Ox O2 Delivery O2 Flow Rate FiO2 10/16/17 06:16 99.1 96 17 142/81 (101) 100 Intake and Output 10/16/17 10/16/17 10/16/17 07:59 15:59 23:59 Intake Total 360 ml Balance 360 ml Assessment & Plan Problem List: (1) Schizoaffective disorder, depressive type ICD Codes: F25.1 - Schizoaffective disorder, depressive type Assessment & Plan Estimated LOS: days patient remains significantly depressed with psychomotor retardation with catatonic features and thought blocking. We'll add Ativan 0.5 mg 3 times a day to regimen Justification for Cont. Inpt. At this time patient will decompensate in place to a lower level of care Discharge Planning Patient to be determined needs further contact the patient's family to see if she is welcome back in her daughter's home Request HC Surrog/Guard Advoc?: No Shawn Taylor MD Oct 16, 2017 13:02
[2017-10-16] MEDS: cloNIDine HCL 0.1 MG TAB PO PRN (16:11)
[2017-10-16] MEDS: LORazepam 0.5 MG TAB PO SCH ×2 (16:11→16:59)
[2017-10-16] MEDS: ACETAMINOPHEN 325 MG TAB PO PRN (16:11)
[2017-10-16 17:49] VITALS: BP 143/73; PULSE 115; RESP 18; TEMP 100; O2SAT 99
[2017-10-16 17:57] VITALS: BP 143/73; PULSE 115; RESP 16; TEMP 100; O2SAT 100
[2017-10-17 05:45] VITALS: BP 159/89; PULSE 95; RESP 18; TEMP 98.3
[2017-10-17] MEDS: GABAPENTIN 300 MG CAP PO SCH ×3 (08:31→18:20)
[2017-10-17] MEDS: amLODIPine BESYLATE 5 MG TAB PO SCH (08:31)
[2017-10-17] MEDS: hydrALAZINE HCL 25 MG TAB PO SCH ×2 (08:32→21:27)
[2017-10-17] MEDS: ATORVASTATIN 20 MG TAB PO SCH (08:32)
[2017-10-17] MEDS: POTASSIUM CHLORIDE 20 MEQ CONTROLLED RELEASE TAB PO SCH (08:32)
[2017-10-17] MEDS: buPROPion HCL 150 MG SUSTAINED RELEASE TAB PO SCH ×2 (08:32→21:27)
[2017-10-17] MEDS: CHOLECALCIFEROL (VIT D3) 1000 UNIT TAB PO SCH (08:32)
[2017-10-17] MEDS: LORazepam 0.5 MG TAB PO SCH ×3 (08:32→18:21)
--- NOTE | 2017-10-17 14:22 | HHI.PYPN ---
Subjective Remarks Patient seen in day room with nurse 1, chart reviewed, patient compliant medication. Patient continues with marked thought blocking delayed brief responses. Attempted to discuss [employer] hearing tomorrow. Patient markedly disorganized unable to process. It appears she continues to be responding to internal stimuli. Will add Risperdal 1 mg 8 AM and 4 PM to the regimen Review of Systems Except as stated in HPI: all other systems reviewed are Neg Mental Status Examination Appearance: Disheveled Consciousness: Alert Orientation: Person Motor Activity: Abnormal gait Speech: Other Language: Adequate Fund of Knowledge: Adequate Attention and Concentration: Inadequate Memory: Impaired Mood: Sad Affect: Flat Thought Process & Associations: Other Thought Content: Thought blocking, Delusional Hallucination Type: Auditory (demonic) Delusion Type: Bizarre Suicidal Ideation: No Suicidal Plan: No Suicidal Intention: No Homicidal Ideation: No Homicidal Plan: No Homicidal Intention: No Insight: Poor Judgment: Poor Results Vitals/IOs Vital Signs Date Time Temp Pulse Resp B/P (MAP) Pulse Ox O2 Delivery O2 Flow Rate FiO2 10/17/17 05:45 98.3 95 18 159/89 (112) 10/16/17 17:57 100 Assessment & Plan Problem List: (1) Schizoaffective disorder, depressive type ICD Codes: F25.1 - Schizoaffective disorder, depressive type Assessment & Plan Estimated LOS: days patient remained psychotic psychomotor retarded, with thought blocking, and very poor verbal output. We'll add Risperdal 1 mg 8 AM and 4 PM to the regimen patient scheduled for [employer] tomorrow morning Justification for Cont. Inpt. At this time patient would decompensated placed in a lower level of care Discharge Planning Possible return to her family Request HC Surrog/Guard Advoc?: No Shawn Taylor MD Oct 17, 2017 14:22
[2017-10-17 18:22] VITALS: BP 178/97; PULSE 100; RESP 18; TEMP 98.1
[2017-10-17] MEDS: risperiDONE 1 MG TAB PO SCH (18:25)
[2017-10-18] MEDS: cloNIDine HCL 0.1 MG TAB PO PRN (05:40)
[2017-10-18 06:03] VITALS: BP 176/81; PULSE 118; RESP 16; TEMP 98.9; O2SAT 100
[2017-10-18] MEDS: risperiDONE 1 MG TAB PO SCH ×2 (08:00→16:03)
[2017-10-18] MEDS: LORazepam 0.5 MG TAB PO SCH ×3 (09:12→18:26)
[2017-10-18] MEDS: ATORVASTATIN 20 MG TAB PO SCH (09:12)
[2017-10-18] MEDS: amLODIPine BESYLATE 5 MG TAB PO SCH (09:12)
[2017-10-18] MEDS: GABAPENTIN 300 MG CAP PO SCH ×3 (09:12→18:26)
[2017-10-18] MEDS: hydrALAZINE HCL 25 MG TAB PO SCH ×2 (09:12→21:47)
[2017-10-18] MEDS: buPROPion HCL 150 MG SUSTAINED RELEASE TAB PO SCH ×2 (09:12→21:47)
[2017-10-18] MEDS: CHOLECALCIFEROL (VIT D3) 1000 UNIT TAB PO SCH (09:12)
[2017-10-18] MEDS: POTASSIUM CHLORIDE 20 MEQ CONTROLLED RELEASE TAB PO SCH (09:13)
--- NOTE | 2017-10-18 13:30 | HHI.PYPN ---
Subjective Remarks Patient seen in [place] [address] today retained by Train Brak[employer] Ismael, patient sad and court quite expressionless appearing work actively psychomotor retarded. With minimal response to his questions. Patient later seen by me on unit also. She remains quite psychomotor retarded with marked delays in her verbal responses that are brief and week. Staff notes that they have seen patient talking to herself as if responding to internal stimuli. Will increase Respinol to 2 mg twice a day Review of Systems Except as stated in HPI: all other systems reviewed are Neg Mental Status Examination Appearance: Disheveled Consciousness: Alert Orientation: Person Motor Activity: Abnormal gait Speech: Other Language: Adequate Fund of Knowledge: Adequate Attention and Concentration: Inadequate Memory: Impaired Mood: Sad Affect: Flat Thought Process & Associations: Other Thought Content: Thought blocking, Delusional Hallucination Type: Auditory (demonic) Delusion Type: Bizarre Suicidal Ideation: No Suicidal Plan: No Suicidal Intention: No Homicidal Ideation: No Homicidal Plan: No Homicidal Intention: No Insight: Poor Judgment: Poor Results Vitals/IOs Vital Signs Date Time Temp Pulse Resp B/P (MAP) Pulse Ox O2 Delivery O2 Flow Rate FiO2 10/18/17 06:03 98.9 118 16 176/81 (112) 100 Assessment & Plan Problem List: (1) Schizoaffective disorder, depressive type ICD Codes: F25.1 - Schizoaffective disorder, depressive type Assessment & Plan Estimated LOS: days patient remains psychotic as well as severely depressed. She medication adjustment above Justification for Cont. Inpt. At this time patient will decompensated placed on lower level of care Discharge Planning Probable return home with family Request HC Surrog/Guard Advoc?: No Shawn Taylor MD Oct 18, 2017 13:30
[2017-10-18 18:25] VITALS: BP 144/79; PULSE 91; RESP 16; TEMP 98.9; O2SAT 98
[2017-10-19 06:13] VITALS: BP 148/79; PULSE 87; RESP 18; TEMP 99; O2SAT 99
[2017-10-19] MEDS: ATORVASTATIN 20 MG TAB PO SCH (09:43)
[2017-10-19] MEDS: GABAPENTIN 300 MG CAP PO SCH ×3 (09:43→18:11)
[2017-10-19] MEDS: buPROPion HCL 150 MG SUSTAINED RELEASE TAB PO SCH ×2 (09:43→21:22)
[2017-10-19] MEDS: POTASSIUM CHLORIDE 20 MEQ CONTROLLED RELEASE TAB PO SCH (09:43)
[2017-10-19] MEDS: risperiDONE 1 MG TAB PO SCH ×2 (09:44→18:12)
[2017-10-19] MEDS: CHOLECALCIFEROL (VIT D3) 1000 UNIT TAB PO SCH (09:44)
[2017-10-19] MEDS: amLODIPine BESYLATE 5 MG TAB PO SCH (09:44)
[2017-10-19] MEDS: hydrALAZINE HCL 25 MG TAB PO SCH ×2 (09:44→21:22)
[2017-10-19] MEDS: LORazepam 0.5 MG TAB PO SCH ×3 (09:44→18:11)
--- NOTE | 2017-10-19 14:49 | HHI.PYPN ---
Subjective Remarks Patient seen in dayroom with floor staff, chart reviewed, patient compliant medication history remain somewhat psychomotor retarded responses remain delayed grief and whisper with poor eye contact. Patients appears to continue with guilty feelings related to the of her grandchild. For now continue treatment Review of Systems Except as stated in HPI: all other systems reviewed are Neg Mental Status Examination Appearance: Disheveled Consciousness: Alert Orientation: Person Motor Activity: Abnormal gait Speech: Other Language: Adequate Fund of Knowledge: Adequate Attention and Concentration: Inadequate Memory: Impaired Mood: Sad Affect: Flat Thought Process & Associations: Other Thought Content: Thought blocking, Delusional Hallucination Type: Auditory (demonic) Delusion Type: Bizarre Suicidal Ideation: No Suicidal Plan: No Suicidal Intention: No Homicidal Ideation: No Homicidal Plan: No Homicidal Intention: No Insight: Poor Judgment: Poor Results Vitals/IOs Vital Signs Date Time Temp Pulse Resp B/P (MAP) Pulse Ox O2 Delivery O2 Flow Rate FiO2 10/19/17 06:13 99.0 87 18 148/79 (102) 99 Assessment & Plan Problem List: (1) Schizoaffective disorder, depressive type ICD Codes: F25.1 - Schizoaffective disorder, depressive type Assessment & Plan Estimated LOS: days patient remains depressed psychotic with marked psychomotor retardation. She also appears to be responding at times to internal stimuli. For now continue treatment Justification for Cont. Inpt. At this time patient will decompensate placed in a lower level of care Discharge Planning Possibly returning home with family Request HC Surrog/Guard Advoc?: No Shawn Taylor MD Oct 19, 2017 14:49
[2017-10-19 18:53] VITALS: BP 125/68; PULSE 95; RESP 18; TEMP 98.4; O2SAT 100
[2017-10-20 05:09] VITALS: BP 111/66; PULSE 85; RESP 17; TEMP 99.3; O2SAT 98
[2017-10-20] MEDS: POTASSIUM CHLORIDE 20 MEQ CONTROLLED RELEASE TAB PO SCH (10:29)
[2017-10-20] MEDS: amLODIPine BESYLATE 5 MG TAB PO SCH (10:30)
[2017-10-20] MEDS: CHOLECALCIFEROL (VIT D3) 1000 UNIT TAB PO SCH (10:30)
[2017-10-20] MEDS: risperiDONE 1 MG TAB PO SCH ×2 (10:30→17:25)
[2017-10-20] MEDS: GABAPENTIN 300 MG CAP PO SCH ×3 (10:30→17:25)
[2017-10-20] MEDS: hydrALAZINE HCL 25 MG TAB PO SCH ×2 (10:30→22:19)
[2017-10-20] MEDS: LORazepam 0.5 MG TAB PO SCH ×3 (10:31→17:25)
[2017-10-20] MEDS: ATORVASTATIN 20 MG TAB PO SCH (10:31)
[2017-10-20] MEDS: buPROPion HCL 150 MG SUSTAINED RELEASE TAB PO SCH ×2 (10:31→22:19)
--- NOTE | 2017-10-20 15:59 | HHI.PYPN ---
Subjective Remarks Pt seen and discussed with staff. She has been compliant with medications and denies side effects. She has been coming out for meals and otherwise staying in bed. She is withdrawn with limited interactions. She reports AH that are disturbing. No SI/HI Mental Status Examination Appearance: Disheveled Consciousness: Alert Orientation: Person Motor Activity: Abnormal gait Speech: Other Language: Adequate Fund of Knowledge: Adequate Attention and Concentration: Inadequate Memory: Impaired Mood: Sad Affect: Flat Thought Process & Associations: Other Thought Content: Thought blocking, Delusional Hallucination Type: Auditory (demonic) Delusion Type: Bizarre Suicidal Ideation: No Suicidal Plan: No Suicidal Intention: No Homicidal Ideation: No Homicidal Plan: No Homicidal Intention: No Insight: Poor Judgment: Poor Results Vitals/IOs Vital Signs Date Time Temp Pulse Resp B/P (MAP) Pulse Ox O2 Delivery O2 Flow Rate FiO2 10/20/17 05:09 99.3 85 17 111/66 (81) 98 Manual Cuff/Auscultation Assessment & Plan Problem List: (1) Schizoaffective disorder, depressive type ICD Codes: F25.1 - Schizoaffective disorder, depressive type Assessment & Plan Continue current tx plan. Estimated LOS: days Justification for Cont. Inpt. impairments in reality testing Request HC Surrog/Guard Advoc?: Milly Davis MD Oct 20, 2017 15:59
[2017-10-20 18:37] VITALS: BP 140/82; PULSE 90; RESP 18; TEMP 98.7
[2017-10-21 05:42] VITALS: BP 126/67; PULSE 93; RESP 18; TEMP 98.9; O2SAT 98
[2017-10-21] MEDS: CHOLECALCIFEROL (VIT D3) 1000 UNIT TAB PO SCH (09:46)
[2017-10-21] MEDS: hydrALAZINE HCL 25 MG TAB PO SCH ×2 (09:46→20:28)
[2017-10-21] MEDS: ATORVASTATIN 20 MG TAB PO SCH (09:46)
[2017-10-21] MEDS: POTASSIUM CHLORIDE 20 MEQ CONTROLLED RELEASE TAB PO SCH (09:46)
[2017-10-21] MEDS: buPROPion HCL 150 MG SUSTAINED RELEASE TAB PO SCH ×2 (09:46→20:28)
[2017-10-21] MEDS: LORazepam 0.5 MG TAB PO SCH ×3 (09:46→17:43)
[2017-10-21] MEDS: amLODIPine BESYLATE 5 MG TAB PO SCH (09:46)
[2017-10-21] MEDS: GABAPENTIN 300 MG CAP PO SCH ×3 (09:47→17:43)
[2017-10-21] MEDS: risperiDONE 1 MG TAB PO SCH ×2 (10:33→15:47)
--- NOTE | 2017-10-21 13:45 | HHI.PYPN ---
Subjective Remarks Pt seen and discussed with staff. Pt has been compliant with medications and denies side effects. She came out to day room and participated in milieu today. Thought blocking is present but decreased. She reports paranoid ideations that her family is in danger. AH are decreasing but impairing. No SI/HI Mental Status Examination Appearance: Disheveled Consciousness: Alert Orientation: Person Motor Activity: Abnormal gait Speech: Other Language: Adequate Fund of Knowledge: Adequate Attention and Concentration: Inadequate Memory: Impaired Mood: Sad Affect: Flat Thought Process & Associations: Other Thought Content: Thought blocking (decreased), Delusional Hallucination Type: Auditory (demonic) Delusion Type: Paranoid Suicidal Ideation: No Suicidal Plan: No Suicidal Intention: No Homicidal Ideation: No Homicidal Plan: No Homicidal Intention: No Insight: Poor Judgment: Poor Results Vitals/IOs Vital Signs Date Time Temp Pulse Resp B/P (MAP) Pulse Ox O2 Delivery O2 Flow Rate FiO2 10/21/17 05:42 98.9 93 18 126/67 (86) 98 Intake and Output 10/21/17 10/21/17 10/22/17 08:00 16:00 00:00 Intake Total 240 ml 240 ml Balance 240 ml 240 ml Assessment & Plan Problem List: (1) Schizoaffective disorder, depressive type ICD Codes: F25.1 - Schizoaffective disorder, depressive type Assessment & Plan Pt is improving slowly. Continue current tx plan. Estimated LOS: days Justification for Cont. Inpt. impairments in reality testing Request HC Surrog/Guard Advoc?: No Milly Esqueda MD Oct 21, 2017 13:45
[2017-10-21 17:26] VITALS: BP 129/77; PULSE 88; RESP 18; TEMP 98.7; O2SAT 100
[2017-10-22 05:42] VITALS: BP 134/76; PULSE 106; RESP 18; TEMP 98.4; O2SAT 100
[2017-10-22] MEDS: LORazepam 0.5 MG TAB PO SCH ×3 (09:16→18:35)
[2017-10-22] MEDS: GABAPENTIN 300 MG CAP PO SCH ×3 (09:17→18:35)
[2017-10-22] MEDS: CHOLECALCIFEROL (VIT D3) 1000 UNIT TAB PO SCH (09:18)
[2017-10-22] MEDS: hydrALAZINE HCL 25 MG TAB PO SCH ×2 (09:18→20:54)
[2017-10-22] MEDS: ATORVASTATIN 20 MG TAB PO SCH (09:18)
[2017-10-22] MEDS: POTASSIUM CHLORIDE 20 MEQ CONTROLLED RELEASE TAB PO SCH (09:18)
[2017-10-22] MEDS: buPROPion HCL 150 MG SUSTAINED RELEASE TAB PO SCH ×2 (09:18→20:53)
[2017-10-22] MEDS: amLODIPine BESYLATE 5 MG TAB PO SCH (09:26)
[2017-10-22] MEDS: risperiDONE 1 MG TAB PO SCH ×2 (09:26→15:59)
--- NOTE | 2017-10-22 17:55 | HHI.PYPN ---
Subjective Remarks Patient seen today in day room with nurse dali, chart review, patient compliant medication. Patient showing some increased affect increased verbal output and some processing. She still complains of auditory hallucinations of a somewhat threatening nature. There is still some delusional ideation paranoia noted though she is improved. For now continue medication no change Review of Systems Except as stated in HPI: all other systems reviewed are Neg Mental Status Examination Appearance: Disheveled Consciousness: Alert Orientation: Person Motor Activity: Abnormal gait Speech: Other Language: Adequate Fund of Knowledge: Adequate Attention and Concentration: Inadequate Memory: Impaired Mood: Sad Affect: Flat Thought Process & Associations: Other Thought Content: Thought blocking (decreased), Delusional Hallucination Type: Auditory (demonic) Delusion Type: Paranoid Suicidal Ideation: No Suicidal Plan: No Suicidal Intention: No Homicidal Ideation: No Homicidal Plan: No Homicidal Intention: No Insight: Poor Judgment: Poor Results Vitals/IOs Vital Signs Date Time Temp Pulse Resp B/P (MAP) Pulse Ox O2 Delivery O2 Flow Rate FiO2 10/22/17 05:42 98.4 106 18 134/76 (95) 100 Assessment & Plan Problem List: (1) Schizoaffective disorder, depressive type ICD Codes: F25.1 - Schizoaffective disorder, depressive type Assessment & Plan Estimated LOS: days patient continue psychotic and delusional though marked improvement in her affect motor activity verbal output, eye contact Justification for Cont. Inpt. At this time patient will decompensate a placed a lower level of care Discharge Planning Possible placement back home with family Request HC Surrog/Guard Advoc?: No Shawn Taylor MD Oct 22, 2017 17:55
[2017-10-22 18:00] VITALS: BP 128/76; PULSE 84; RESP 18; TEMP 98.3; O2SAT 98
[2017-10-23 05:43] VITALS: BP 123/68; PULSE 91; RESP 17; TEMP 98.9; O2SAT 99
[2017-10-23] MEDS: CHOLECALCIFEROL (VIT D3) 1000 UNIT TAB PO SCH (08:09)
[2017-10-23] MEDS: hydrALAZINE HCL 25 MG TAB PO SCH ×2 (08:09→21:12)
[2017-10-23] MEDS: POTASSIUM CHLORIDE 20 MEQ CONTROLLED RELEASE TAB PO SCH (08:09)
[2017-10-23] MEDS: GABAPENTIN 300 MG CAP PO SCH ×3 (08:09→17:59)
[2017-10-23] MEDS: LORazepam 0.5 MG TAB PO SCH ×3 (08:09→21:12)
[2017-10-23] MEDS: risperiDONE 1 MG TAB PO SCH (08:09)
[2017-10-23] MEDS: amLODIPine BESYLATE 5 MG TAB PO SCH (08:10)
[2017-10-23] MEDS: ATORVASTATIN 20 MG TAB PO SCH (08:10)
[2017-10-23] MEDS: buPROPion HCL 150 MG SUSTAINED RELEASE TAB PO SCH ×2 (08:10→21:12)
[2017-10-23 08:43] VITALS: BP 123/68; PULSE 91; RESP 17; TEMP 98.9; O2SAT 99
--- NOTE | 2017-10-23 10:51 | PD.TTN ---
Patient Problems 1. Discharge planning 2. Medication compliance 3. Knowledge deficit 4. Lack of coping skills Progress Toward Goals Provider Present: Dr. Farooq Taylor Provider Input: 10/23 Patient is noted to be improving in mood and has become more verbal since her admission. Patient continues to endorse dleusions of her being a "clone" and not knowing what is reality. Patient is cooperative and calm with cooperative with medications Patient has psychomotor movement and continues to talk in a hushed whispered tone. Patient is compliant with medications and make limited eye contact. Patient is cooperative and has low affect. Nurse(s) Input: 10/23 Patient is cooperative and calm and is attending to ADLs. Patient is compliant with medications and is being more involved in peer interactions. Patient is compliant with medications and is somewhat isolative to self. Psychiatric Counselors Present: IAN Bonds Psych Therapist Input: Patient continues to have some odd behaviores but is able to verbalize her needs. Patient is cooperative and calm and is able to identify reasons for admission. Patient has low affect and is limited with eye contact. Patient continues to feel guilty over of grandson and would benefit from grief counseling. Group Spec/RT/OT/GILLIS Present: Thomas Gilmore OT Group Spec/RT/OT/GILLIS Input: Patient attned select groups Darlene Jackson Oct 23, 2017 10:51
--- NOTE | 2017-10-23 14:09 | HHI.PYPN ---
Subjective Remarks Patient seen in her room with nurse Anisha, chart review, patient compliant medication. Patient laying quietly in bed with covers to her children. Alert focused though she also acknowledges increase auditory hallucinations of a threatening command nature. She does denies suicidality. Though she does question the feasibility moving in with a family member. For now will decrease schedule Ativan to twice a day. Will increase scheduled Respinol to 3 mg twice a day Review of Systems Except as stated in HPI: all other systems reviewed are Neg Mental Status Examination Appearance: Disheveled Consciousness: Alert Orientation: Person Motor Activity: Abnormal gait Speech: Other Language: Adequate Fund of Knowledge: Adequate Attention and Concentration: Inadequate Memory: Impaired Mood: Sad Affect: Flat Thought Process & Associations: Other Thought Content: Thought blocking (decreased), Delusional Hallucination Type: Auditory (demonic) Delusion Type: Paranoid Suicidal Ideation: No Suicidal Plan: No Suicidal Intention: No Homicidal Ideation: No Homicidal Plan: No Homicidal Intention: No Insight: Poor Judgment: Poor Results Vitals/IOs Vital Signs Date Time Temp Pulse Resp B/P (MAP) Pulse Ox O2 Delivery O2 Flow Rate FiO2 10/23/17 08:43 98.9 91 17 123/68 (86) 99 Intake and Output 10/23/17 10/23/17 10/24/17 08:00 16:00 00:00 Intake Total 600 ml Balance 600 ml Assessment & Plan Problem List: (1) Schizoaffective disorder, depressive type ICD Codes: F25.1 - Schizoaffective disorder, depressive type Assessment & Plan Estimated LOS: days patient continue psychotic somewhat depressed. Please see medication adjustments above Justification for Cont. Inpt. At this time patient will decompensate of placed in a lower level of care Discharge Planning Need to placement related to various members of her extended family Request HC Surrog/Guard Advoc?: No Shawn Taylor MD Oct 23, 2017 14:09
[2017-10-23] MEDS: risperiDONE 3 MG TAB PO SCH (15:57)
[2017-10-23 17:57] VITALS: BP 149/87; PULSE 90; RESP 18; TEMP 98.4; O2SAT 100
[2017-10-24 06:35] VITALS: BP 144/75; PULSE 93; RESP 18; TEMP 99.1; O2SAT 97
[2017-10-24 07:03] VITALS: BP 144/75; PULSE 93; RESP 18; TEMP 99.6; O2SAT 97
[2017-10-24] MEDS: LORazepam 0.5 MG TAB PO SCH ×2 (08:28→20:41)
[2017-10-24] MEDS: POTASSIUM CHLORIDE 20 MEQ CONTROLLED RELEASE TAB PO SCH (08:28)
[2017-10-24] MEDS: buPROPion HCL 150 MG SUSTAINED RELEASE TAB PO SCH ×2 (08:28→20:41)
[2017-10-24] MEDS: GABAPENTIN 300 MG CAP PO SCH ×3 (08:28→17:05)
[2017-10-24] MEDS: ATORVASTATIN 20 MG TAB PO SCH (08:28)
[2017-10-24] MEDS: CHOLECALCIFEROL (VIT D3) 1000 UNIT TAB PO SCH (08:28)
[2017-10-24] MEDS: risperiDONE 3 MG TAB PO SCH ×2 (08:28→15:14)
[2017-10-24] MEDS: hydrALAZINE HCL 25 MG TAB PO SCH ×2 (08:28→20:41)
[2017-10-24] MEDS: amLODIPine BESYLATE 5 MG TAB PO SCH (08:28)
--- NOTE | 2017-10-24 14:24 | HHI.PYPN ---
Subjective Remarks Patient seen in dayroom with floor staff, chart review, patient compliant medication. Patient sitting quietly reading the Bible. Her affect continues to improve she showing increased eye contact more rapid verbal responses. The delayed responses and thought blocking her essentially resolved. She does denies suicidality. She says the voices are diminishing. It appears she is willing to be placed with family members. She is willing to commit to compliance with medication and outpatient appointments. We'll consider discharge in next 24-48 hours her patient continues to improve Review of Systems Except as stated in HPI: all other systems reviewed are Neg Mental Status Examination Appearance: Appropriate Consciousness: Alert Orientation: Person, Place Motor Activity: Abnormal gait (improving) Speech: Other (improving in rate rhythm and intensity) Language: Adequate Fund of Knowledge: Adequate Attention and Concentration: Inadequate Memory: Impaired Mood: Sad (but improving) Affect: Other (slight improvement in range and intensity) Thought Process & Associations: Intact (improving) Thought Content: Thought blocking, Delusional (markedly decreased) Hallucination Type: Auditory (decreasing) Delusion Type: Paranoid (decreasing) Suicidal Ideation: No Suicidal Plan: No Suicidal Intention: No Homicidal Ideation: No Homicidal Plan: No Homicidal Intention: No Insight: Poor Judgment: Poor Results Vitals/IOs Vital Signs Date Time Temp Pulse Resp B/P (MAP) Pulse Ox O2 Delivery O2 Flow Rate FiO2 10/24/17 07:03 99.6 93 18 144/75 (98) 97 Assessment & Plan Problem List: (1) Schizoaffective disorder, depressive type ICD Codes: F25.1 - Schizoaffective disorder, depressive type Assessment & Plan Estimated LOS: days patient continues to improve her eye contact is better, her verbal responses are more appropriate in intensity volume and pacing. Her psychosis is diminishing. Patient continues to do that will consider discharge in the next 24-48 hours Justification for Cont. Inpt. At this time patient decompensate if not place an appropriate level of care Discharge Planning Consider discharge to family the next 24-48 hours Request HC Surrog/Guard Advoc?: Shawn Barkley MD Oct 24, 2017 14:24
[2017-10-24 18:00] VITALS: BP 125/76; PULSE 80; RESP 18; TEMP 98.4; O2SAT 100
[2017-10-25] MEDS: diphenhydrAMINE HCL 50 MG CAP PO PRN ×2 (02:29→21:18)
[2017-10-25 08:03] VITALS: BP 145/71; PULSE 90; RESP 20; TEMP 98.9; O2SAT 99
[2017-10-25] MEDS: amLODIPine BESYLATE 5 MG TAB PO SCH (09:11)
[2017-10-25] MEDS: hydrALAZINE HCL 25 MG TAB PO SCH ×2 (09:11→21:18)
[2017-10-25] MEDS: GABAPENTIN 300 MG CAP PO SCH ×3 (09:11→18:05)
[2017-10-25] MEDS: ATORVASTATIN 20 MG TAB PO SCH (09:11)
[2017-10-25] MEDS: buPROPion HCL 150 MG SUSTAINED RELEASE TAB PO SCH ×2 (09:12→21:18)
[2017-10-25] MEDS: POTASSIUM CHLORIDE 20 MEQ CONTROLLED RELEASE TAB PO SCH (09:12)
[2017-10-25] MEDS: LORazepam 0.5 MG TAB PO SCH (09:13)
[2017-10-25] MEDS: CHOLECALCIFEROL (VIT D3) 1000 UNIT TAB PO SCH (09:13)
[2017-10-25] MEDS: risperiDONE 3 MG TAB PO SCH ×2 (09:21→17:08)
--- NOTE | 2017-10-25 13:31 | HHI.PYPN ---
Subjective Remarks Patient seen in day room with nurse Anisha, chart review, patient compliant medications. Patient continues to show some improvement in her affect. Its range intensity are increasing. She showing more intense eye contact. Speech is somewhat quicker. Though it remains tangential. Will discontinue scheduled Ativan. At this time patient does deny any voices in her head. Does denies suicidality. Is aware of the complications developing with her family related to placement Review of Systems Except as stated in HPI: all other systems reviewed are Neg Mental Status Examination Appearance: Appropriate Consciousness: Alert Orientation: Person, Place Motor Activity: Abnormal gait (improving) Speech: Other (improving in rate rhythm and intensity) Language: Adequate Fund of Knowledge: Adequate Attention and Concentration: Inadequate Memory: Impaired Mood: Sad (but improving) Affect: Other (slight improvement in range and intensity) Thought Process & Associations: Intact (improving) Thought Content: Thought blocking, Delusional (markedly decreased) Hallucination Type: Auditory (decreasing) Delusion Type: Paranoid (decreasing) Suicidal Ideation: No Suicidal Plan: No Suicidal Intention: No Homicidal Ideation: No Homicidal Plan: No Homicidal Intention: No Insight: Poor Judgment: Poor Results Vitals/IOs Vital Signs Date Time Temp Pulse Resp B/P (MAP) Pulse Ox O2 Delivery O2 Flow Rate FiO2 10/25/17 08:03 98.9 90 20 145/71 (95) 99 Intake and Output 10/25/17 10/25/17 10/26/17 08:00 16:00 00:00 Intake Total 480 ml Balance 480 ml Assessment & Plan Problem List: (1) Schizoaffective disorder, depressive type ICD Codes: F25.1 - Schizoaffective disorder, depressive type Assessment & Plan Estimated LOS: days patient's depression seemed somewhat softer, her psychosis also seemed somewhat softer. She medication adjustments above Justification for Cont. Inpt. At this time patient will decompensate of place to the lower level of care Discharge Planning We continue to investigate possibility of placement of the family or extended family member Request HC Surrog/Guard Advoc?: Shawn Barkley MD Oct 25, 2017 13:31
[2017-10-25 18:38] VITALS: BP 140/79; PULSE 95; RESP 18; TEMP 98.9; O2SAT 100
[2017-10-26 06:15] VITALS: BP 123/69; PULSE 94; RESP 17; TEMP 99.1; O2SAT 98
[2017-10-26] MEDS: hydrALAZINE HCL 25 MG TAB PO SCH (08:26)
[2017-10-26] MEDS: risperiDONE 3 MG TAB PO SCH ×2 (08:26→16:30)
[2017-10-26] MEDS: ATORVASTATIN 20 MG TAB PO SCH (08:26)
[2017-10-26] MEDS: POTASSIUM CHLORIDE 20 MEQ CONTROLLED RELEASE TAB PO SCH (08:26)
[2017-10-26] MEDS: GABAPENTIN 300 MG CAP PO SCH ×2 (08:26→13:36)
[2017-10-26] MEDS: CHOLECALCIFEROL (VIT D3) 1000 UNIT TAB PO SCH (08:26)
[2017-10-26] MEDS: buPROPion HCL 150 MG SUSTAINED RELEASE TAB PO SCH (08:26)
[2017-10-26] MEDS: amLODIPine BESYLATE 5 MG TAB PO SCH (08:27)
[2017-10-26] MEDS ORDERED: RISP3 PO (13:07)
[2017-10-26] MEDS ORDERED: GABA300C5 PO (13:07)
[2017-10-26] MEDS ORDERED: AMLO10TA2 PO (13:07)
[2017-10-26] MEDS ORDERED: BUPR150CR PO (13:07)
[2017-10-26] MEDS ORDERED: HYDR-3799 PO (13:07)
[2017-10-26] MEDS ORDERED: ARIP1TAB14 PO (13:07)
[2017-10-26] MEDS ORDERED: POTA20TA5 PO (13:07)
[2017-10-26] MEDS ORDERED: CHOL1000 PO (13:07)
--- NOTE | 2017-10-26 13:13 | HHI.DS ---
Psychiatry Discharge Summary Inpatient Psychiatric care?: Yes Advance Directive: No Reason Not Provided: Due to Patient Condition Mental Health AdvanceDirective: No Health Care Proxy: No Admission Admission Date Oct 11, 2017 at 14:40 Admission Diagnosis: (1) Schizoaffective disorder, depressive type ICD Code: F25.1 - Schizoaffective disorder, depressive type Brief History 52-year-old female brought in voluntarily, with history of either schizophrenia or schizoaffective disorder, mostly nonverbal and not caring for herself. Apparently the patient's 7-8 month old grandson the day prior to arrival. He was felt to have as a result of SIDS. The patient was living with her daughter and grandson. She called a family member and indicated she felt stressed. The morning of her admission to the emergency department, the patient became nonverbal. She would not get out of bed. When presenting to the emergency department physician, she was lying on a stretcher with her eyes closed. She would not respond to questions from staff or family members. Occasionally she would not her head or provide one word answers she has not eaten food or consumed liquids since her grandson . In the past the patient had lived alone but she is not recently living alone but instead lives with her daughter, Kristen starks period Upon interview, the patient once again gives 1 word answers, no answers or very brief answers. She is aware that her grandson . She is aware that she is treated at [facility]. She is also aware that she lives with her daughter Kristen. However, she is not moving or eating or drinking spontaneously. She is quite close to being catatonic. Tobacco Use In Past 30 Days: No Tobacco Past 30 Days Alcohol Use: Never Hospital Course Patient's initial course in hospital was noted for patients depression psychosis marked psychomotor retardation minimal verbal output and acknowledgment of auditory hallucinations. Patient showed mixed compliance with medication. She initially was refusing her Haldol although it is also felt that she didn't have capacity to make decisions concerning care treatment that we did go to [place] [facility] when got a guardian advocate and from there is able to initiate or aggressive treatment. Patient's mood gradually improved her affect markedly improved with increased range and intensity, her speech became quite a bit more spontaneous and goal oriented. Patient is able to acknowledge now the of her grandson. They contact with patient's mother. Mother is willing to have patient come stay with her for well also she is more fully recovered. I feel patient has been maximum benefit of this hospitalization. Thus will discharge patient today to her mother with Rx 1 month the follow-up [facility] outpatient medication management and perhaps talk therapy and grief therapy counseling Results Blood Pressure 123 / 69 Vital Signs Date Time Temp Pulse Resp B/P (MAP) Pulse Ox O2 Delivery O2 Flow Rate FiO2 10/26/17 06:15 99.1 94 17 123/69 (87) 98 Laboratory Results Test 10/12/17 09:09 Cholesterol Level 201 MG/DL (120-200) HDL Cholesterol 64.5 MG/DL (40.0-60.0) Hemoglobin A1c 5.5 % (4.3-6.0) LDL Cholesterol 125 MG/DL (0-99) Triglycerides Level 56 MG/DL (42-150) Summary of Procedures None done Pending results at discharge: No Medications # of Antipsychotic meds at D/C: 2 Appropriate >1 Antipsych meds?: 2 (would recommend outpatient clinician consider taper of Risperdal as patient recovers) Approp Antipsych med options 1 - Minimum of three failed multiple trials of monotherapy. 2 - Documented plan to taper to monotherapy due to previous use of multiple meds OR cross-taper in progress at D/C. 3 - Documentation of augmentation of Clozapine. 4 - Justification other than those listed in allowable values 1-3, document here : Discharge Discharge Date: Oct 26, 2017 Discharge Diagnosis: (1) Schizoaffective disorder, depressive type Diagnosis: Principal ICD Code: F25.1 - Schizoaffective disorder, depressive type Pt Condition on Discharge: Stable Discharge Disposition: Discharge Home Discharge Instructions Diet Instructions: As Tolerated, No Restrictions Activities you can perform: Regular-No Restrictions Scheduled Appointment: [facility] Appointment Date: Oct 29, 2017 Appointment Time: 07:30pm Discharge Time > 30 minutes Mental Status Examination Appearance: Appropriate Consciousness: Alert Orientation: Person, Place Motor Activity: Abnormal gait (improving) Speech: Other (improving in rate rhythm and intensity) Language: Adequate Fund of Knowledge: Adequate Attention and Concentration: Inadequate Memory: Impaired Mood: Sad (but improving) Affect: Other (slight improvement in range and intensity) Thought Process & Associations: Intact (improving) Thought Content: Thought blocking, Delusional (markedly decreased) Hallucination Type: Auditory (decreasing) Delusion Type: Paranoid (decreasing) Suicidal Ideation: No Suicidal Plan: No Suicidal Intention: No Homicidal Ideation: No Homicidal Plan: No Homicidal Intention: No Insight: Poor Judgment: Poor Discharge/Advance Care Plan Health Problems: (1) Schizoaffective disorder, depressive type Goals to promote your health * To prevent worsening of your condition and complications * To maintain your health at the optimal level Directions to meet your goals Take your medications as prescribed Follow your dietary instruction Follow activity as directed Keep your appointments as scheduled Take your immunizations and boosters as scheduled If your symptoms worsen call your PCP, if no PCP go to Urgent Care Center or Emergency Room For 30/04 questions related to your inpatient stay or results of tests pending at discharge, please contact Dr. Shawn Taylor at Smoking is Dangerous to Your Health. Avoid second hand smoking Shawn Taylor MD Oct 26, 2017 13:13
== END 2017-10-26 17:05 | disposition home or self-care (01) | DRG 885 ==
LOC: NEPC 13:24 → NEDA 10-11 14:40 → H260 10-11 15:43
PROVIDERS: ADMIT Psychiatry & Neurology Psychiatry; ATTEND Psychiatry & Neurology Psychiatry
DX: F25.1 Schizoaffective disorder, depressive type (principal); N17.9 Acute kidney failure, unspecified; I10 Essential (primary) hypertension; G89.29 Other chronic pain; E78.5 Hyperlipidemia, unspecified; K59.00 Constipation, unspecified; M25.569 Pain in unspecified knee
CPT/HCPCS: 80048; 80053; 80061; 80307; 82306; 82607; 83036; 84443; 85025; 93005; 99285; Q0163